=== PATIENT | female | born 1970 | race Caucasian/White ===

== ENCOUNTER 2016-08-16 20:09 | Emergency (ER) | payer OTHER ==
[~2016-08-16 20:09] MED LIST: ALBUTEROL SULF8.5 GM IH; ALDACTONE25 M1 PO; ALEVE220 M1 PO; ALPRAZOLAM0.5 M2 PO; ALPRAZOLAM0.5 M3 PO; AMOXICILLIN500 M1 PO; ASPIR 8181 M1 PO; ASPIRIN325 MG; BABY ASPIRIN81 MG; BACTRIM DS1 TA1 PO; COREG3.125 M1 PO; COREG6.25 M1 PO; COZAAR50 M1 PO; CYCLOBENZAPRINE10 MG PO; DARVOCET-N 1001 EACH PO; DARVOCET-N 1001 TAB; DARVOCET-N 1001 TAB PO; DIAZEPAM2 M2 PO; EFFER-K 10 MEQ10 ME1 PO; FLEXERIL10 MG PO; GUAIFEN-CODEIN120 ML PO; H; HYDROCODON-ACE1 EA15 PO; IBUPROFEN200 M3 PO; IBUPROFEN800 MG; IBUPROFEN800 MG PO; LASIX20 M1 PO; LEXAPRO10 M2 PO; LISINOPRIL5 M1 PO; LOSARTAN POTASS50 M1 PO; METOPROLOL SUCC50 M1 PO; MOTRIN800 MG; MOTRIN800 MG PO; MULTIVITAMIN1 CAP; NO HOME MEDS; NORCO 5-325 TA1 EACH PO; NORCO 5/325 TAB1 TAB; NORCO 5/325 TAB1 TAB PO; NORCO 7.5/325 T1 TAB; NORFLEX100 MG PO; NUCYNTA50 MG PO; NUPRIN200 M PO; OXYCODONE/APAP PO; PAXIL20 MG PO; PERCOCET 5-3251 EACH PO; PERCOCET 5/3251 TAB; PERCOCET 5/3251 TAB PO; PERCOCET 5MG/AP1 TAB PO; POTASSIUM CHLO20 ME3 PO; PREDNISONE10 M1 PO; PREDNISONE5 MG PO; SPIRONOLACTONE25 M2 PO; TRAMADOL HCL50 M2 PO; TUSSIONEX PENN473 ML PO; TUSSIONEX PO; TYLENOL #31 TA1 PO; TYLENOL #31 TA2 PO; TYLENOL #31 TAB PO; TYLENOL WITH C1 EACH PO; TYLENOL325 MG PO; TYLENOL500 MG PO; ULTRAM50 M1 PO; ULTRAM50 MG PO; VALIUM2 M1 PO; VALIUM5 M1 PO; VALIUM5 MG PO; VICODIN 5/500 T1 TAB PO; XANAX0.5 MG; XANAX0.5 MG PO; XARELTO10 MG PO; ZESTRIL5 M1 PO; ZITHROMAX250MG Z-PAK PO; ZOFRAN ODT4 MG/UDTAB PO; ZOFRAN4 M2 PO; [UNRECOGNIZED DRUG - OTHER] PO
[2016-08-16 22:16] LABS: BASO % 0.8 % (0-2); BASO ABSOLUTE COUNT 0.1 tho/cmm (0.0-0.2); EOSINOPHIL ABSOLUTE COUNT 0.3 tho/cmm (0.0-0.7); HGB-HEMOGLOBIN 13.2 gm/dl (12.0-15.5); IMMATURE GRANULOCYTES ABSOLUTE 0.01 tho/cmm (0-0.03); IMMATURE GRANULOCYTES PERCENT 0.2 % (0-0.3); LYMPH % 41.1 % (20-45); LYMPH ABSOLUTE COUNT 2.6 tho/cmm (0.8-4.5); MCH (MEAN CORPUSCULAR HGB) 31.4 pg (28.0-32.0); MCHC MEAN CORPUSCULAR HGB CONC 33.8 % (32.0-36.0); MCV (MEAN CELL VOLUME) 92.9 fl (82.0-96.0); MEAN PLATELET VOLUME 9.5 cmc (9.4-12.4); MONO % 8.5 % (0-12); MONOCYTE ABSOLUTE COUNT 0.5 tho/cmm (0.0-1.2); NEUTROPHIL ABSOLUTE COUNT 2.9 tho/cmm (1.6-8.0); NEUTROPHIL-AUTOMATED 2.9 tho/cmm (1.6-8.0); NEUTROPHILS % 45.4 % (40-80); PLATELET COUNT 318 tho/cmm (150-450); RED CELL DISTRIBUTION WIDTH 12.8 % (12.4-16.4); WHITE BLOOD COUNT 6.3 tho/cmm (4.0-10.0)
[2016-08-16 22:31] LABS: ALKALINE PHOSPHATASE 94 U/L (33-138); ALT/SGPT 59 U/L (12-78); ANION GAP 13 mmol/L (0-20); AST/SGOT 35 U/L (10-40); BILIRUBIN,TOTAL 0.2 mg/dl (0-1.5); BLOOD UREA NITROGEN 21 mg/dl (6-24); CALCIUM 9.2 mg/dl (8.5-10.5); CARBON DIOXIDE-VENOUS 28 mmol/L (22-32); CHLORIDE 105 mmol/l (96-110); CREATININE 0.91 mg/dl (0.50-1.10); GLUCOSE 132 mg/dL (70-110); POTASSIUM 3.5 mmol/L (3.7-5.1); SODIUM 142 mmol/L (135-145); eGFR VALUE FOR BLACK 87 mL/Min
[2016-08-16] MEDS ORDERED: PREDNISONE10 M1 PO (23:05)
[2016-08-16] MEDS ORDERED: PROMETH-CODEIN 65 ML PO (23:27)
[2016-11-25] MEDS ORDERED: ATIVAN1 M2 PO (20:44)
== END 2016-08-16 23:40 ==
LOC: EDMED 20:09
PROVIDERS: Physician Assistant
DX: J40 Bronchitis, not specified as acute or chronic (principal); E87.6 Hypokalemia; I10 Essential (primary) hypertension; Z96.651 Presence of right artificial knee joint; Z90.710 Acquired absence of both cervix and uterus; Z90.49 Acquired absence of other specified parts of digestive tract; Z79.899 Other long term (current) drug therapy